=== PATIENT | male | born 1955 | race African-American/Black ===

== ENCOUNTER 2020-01-15 04:06 | Emergency (ER) | payer OTHER ==
[2020-01-15] MEDS ORDERED: PANTOPRAZOLE SODIUM 40 MG VIAL IV PRN (04:46)
[2020-01-15] MEDS ORDERED: ONDANSETRON HCL INJ/PF 4 MG/2 ML SDV IV ONE (04:46)
[2020-01-15] MEDS ORDERED: NORMAL SALINE 250 ML IV PRN ×4 (04:46→05:18)
[2020-01-15] MEDS ORDERED: PANTOPRAZOLE SODIUM 40 MG VIAL IV ONE (04:46)
[2020-01-15 04:59] LABS: MEAN CORPUSCULAR HEMOGLOBIN 31.5 pg (27.0-33.4); MEAN CORPUSCULAR HGB CONC 33.7 g/dL (32.0-36.0); MEAN CORPUSCULAR VOLUME 94 fl (80-97); PLATELET COUNT 106 10^3/uL (150-450); RED BLOOD COUNT 1.54 10^6/uL (4.35-5.55); RED CELL DISTRIBUTION WIDTH 16.6 % (11.5-14.0); WHITE BLOOD COUNT 7.4 10^3/uL (4.0-10.5)
[2020-01-15 05:03] LABS: HEMATOCRIT 14.5 % (37.9-51.0)
--- NOTE | 2020-01-15 05:08 | ER Document Report ---
ED GI/ - General TRAVEL OUTSIDE OF THE [place] IN LAST 30 DAYS: No <ISAMAR CONWAY - Last Filed: 01/15/20 08:06> <DOMITILA LYN Marleen - Last Filed: 01/15/20 11:38> - General Stated Complaint: VOMITING,WEAKNESS Time Seen by Provider: 01/15/20 04:36 Primary Care Provider: AMY PERKINS MD [NO LOCAL MD] - Follow up as needed Notes: Patient is a 64-year-old male who comes emergency department for chief complaint of vomiting blood by EMS. Patient states he vomited twice with mixed blood, 2 large clots, and some gastric contents. Patient states that he was just discharged from [facility] after he had initially been transferred for atrial fibrillation, he states he had been placed on heparin and then started bleeding heavily from the rectum, he was then diagnosed with rectal cancer, he completed oral chemo for this and is no longer on chemotherapy. Patient states that he also developed a bleeding gastric ulcer while he was there and he had 2 separate endoscopies. He states that his last endoscopy was 3 days ago he was told the area had stopped bleeding, he states he was diagnosed with H. pylori and he is currently on the treatment regimen for this. He denies abdominal pain, chest pain, he states his stomach just "feels strange like a pressure". He denies dizziness or passing out. He is not currently on a blood thinner. (ISAMAR CONWAY) - Related Data Allergies/Adverse Reactions: clonidine Allergy (Verified 01/15/20 06:31) Past Medical History - General Information source: Patient - Social History Smoking Status: Never Smoker Frequency of alcohol use: None Drug Abuse: None Lives with: Family Family History: Reviewed & Not Pertinent - Past Medical History Cardiac Medical History: Reports: Hx Atrial Fibrillation Malignancy Medical History: Reports Hx Colorectal Cancer <ISAMAR CONWAY - Last Filed: 01/15/20 08:06> Review of Systems - Review of Systems Constitutional: No symptoms reported EENT: No symptoms reported Cardiovascular: See HPI Respiratory: No symptoms reported Gastrointestinal: See HPI Genitourinary: No symptoms reported Male Genitourinary: No symptoms reported Musculoskeletal: No symptoms reported Skin: No symptoms reported Hematologic/Lymphatic: No symptoms reported Neurological/Psychological: No symptoms reported <ISAMAR CONWAY - Last Filed: 01/15/20 08:06> Physical Exam <ISAMAR CONWAY - Last Filed: 01/15/20 08:06> - Vital signs Vitals: Pulse Ox 95 01/15/20 04:08 - Notes Notes: GENERAL: Patient is alert and interactive but he is slightly sluggish and pale in appearance HEAD: Normocephalic, atraumatic. EYES: Pupils equal, round, and reactive to light. Extraocular movements intact. ENT: Oral mucosa moist, tongue midline. Oropharynx unremarkable. Airway patent. NECK: Full range of motion. Supple. Trachea midline. No lymphadenopathy. LUNGS: Clear to auscultation bilaterally, no wheezes, rales, or rhonchi. No respiratory distress. Non-tender chest wall. HEART: Regular rate and rhythm. 1/6 murmur heard throughout ABDOMEN: Soft, non-tender. Non-distended. Bowel sounds present in all 4 quadrants. GENITOURINARY: Deferred EXTREMITIES: Moves all 4 extremities spontaneously. No edema, normal radial and dorsalis pedis pulses bilaterally. No cyanosis. AV fistula in place in the left arm BACK: no cervical, thoracic, lumbar midline tenderness. No saddle anesthesia, normal distal neurovascular exam. Moves all extremities in full range of motion. NEUROLOGICAL: Alert and oriented x3. Normal speech. Cranial nerves II through XII grossly intact. Strength 5/5 in all extremities. PSYCH: Normal affect, normal mood. SKIN: Warm, dry, normal turgor. No rashes or lesions noted. (ISAMAR CONWAY) Course - Laboratory Result Diagrams: 01/15/20 04:38 01/15/20 04:38 <ISAMAR CONWAY - Last Filed: 01/15/20 08:06> - Laboratory Result Diagrams: 01/15/20 04:38 01/15/20 04:38 <DOMITILA LYN - Last Filed: 01/15/20 11:38> - Re-evaluation Re-evalutation: On my initial evaluation patient's vital signs are unremarkable but patient is obviously sluggish and pale in appearance. He also has black stools on rectal examination. Initially I was going to order transfusion with irradiated pr oducts, however patient clarified that he is not on chemotherapy currently (has completed it and will not be on chemotherapy again). This was changed to regular transfusion. Started Protonix drip, transfusion pending, however we are having a lot of difficulty with vascular access. We were able to place 1 peripheral that is intermittently working. Patient has a very flat EJ, restricted left upper extremity. Hemoglobin is 4.9. Discussed with patient, patient consents to central line. Discussed with Dr. Araya. Central line was placed. 01/15/20 06:05 Called and spoke with Dr. Sorensen, generally surgery sr technical sales consultant, he states he will consult on the patient but he recommends I speak with the [facility] transfer center for potential transfer. We do not have GI sr technical sales consultant here and patient has a com plicated history with his recent bleed and colorectal cancer. Patient also follows with oncology at this facility, and he was very recently discharged from their facility. 01/15/20 07:[address] Osborn, hospitalist on-call at [facility], she states they will gladly accept the patient in transfer however she recommends that patient be accepted to the unit because she believes that this is a complicated GI bleed and because his hemoglobin has very significantly fallen since his discharge. 01/15/20 08:07 Introduced to Starr Lyn PA-C pending transfer. (ISAMAR CONWAY) 01/15/20 08:10 Assumed care of patient from GIACOMO Conway. Patient is pending transfer to [facility]. He did speak with the hospitalist there and they definitely agree that the patient should be transferred but she would like for him to go to the ICU. We are waiting for the burial agent to call back. Once we speak to the burial agent then we can go ahead and start this transfer. Currently he is not hypotensive. He is resting and getting transfusion of blood. It is noted that he had a initial hemoglobin of 4.9 and is getting transfused. He is also on a Protonix drip 8 mg/h. Patient has an upper GI bleed. He is a colorectal patient at [facility]. He has known GI ulcer. We suspect that this is where the bleeding is coming from. GIACOMO Carrera and I rounded on the patient together and they are aware that I am assuming care. We will continue to monitor closely. He has a central line in his right IJ. 01/15/20 08:[address] Dereje Jernigan from the MICU at [facility]. He accepts the patient to his service. The transfer center will call us once a bed is available and then we can arrange transport. They do request that all imaging studies and lab work come with the patient. 01/15/20 11:38 Transfer team from [facility] is here. Went and rounded on the patient. He states he is feeling better after getting transfusion. Vitals are stable. He is stable for transfer. (DOMITILA LYN) - Vital Signs Vital signs: Temp Pulse Resp BP Pulse Ox 97.7 F 71 23 H 157/81 H 100 01/15/20 09:28 01/15/20 09:30 01/15/20 10:41 01/15/20 10:41 01/15/20 10:41 - Laboratory Laboratory results interpreted by me: 01/15/20 01/15/20 01/15/20 04:38 04:38 04:38 RBC 1.54 L Hgb 4.9 L* Hct 14.5 L* RDW 16.6 H Plt Count 106 L Seg Neuts % (Manual) 91 H Lymphocytes % (Manual) 6 L Monocytes % (Manual) 2 L Abs Lymphs (Manual) 0.4 L PT 17.8 H Chloride 110 H Carbon Dioxide 21 L BUN 114 H Creatinine 7.52 H Est GFR ( Amer) 9 L Est GFR (MDRD) Non-Af 7 L Glucose 130 H Calcium 6.0 L* AST 15 L Alkaline Phosphatase 24 L Total Protein 3.5 L Albumin 1.7 L Lipase 493.8 H Crossmatch 01/15/20 04:38 RBC Hgb Hct RDW Plt Count Seg Neuts % (Manual) Lymphocytes % (Manual) Monocytes % (Manual) Abs Lymphs (Manual) PT Chloride Carbon Dioxide BUN Creatinine Est GFR ( Amer) Est GFR (MDRD) Non-Af Glucose Calcium AST Alkaline Phosphatase Total Protein Albumin Lipase Crossmatch See Detail Procedures - Central Line Right Internal jugular Consent obtained: Yes Central line pre-insertion: Sterile PPE donned, Chloraprep applied, Sterile drapes applied Central line lumen type: Triple Anesthetic type: 1% Lidocaine mL's of anesthesia: 3 Ultrasound guided: Yes Line secured with sutures: Yes Central line post-insertion: Blood return from lumens, Biopatch applied, Sutured, Sterile dressing applied, Position confirmed w/ CXR Number of attempts: 1 Complications: No <FRIANT,ISAMAR - Last Filed: 01/15/20 08:06> Discharge <ISAMAR CONWAY - Last Filed: 01/15/20 08:06> <DOMITILA LYN - Last Filed: 01/15/20 11:38> - Discharge Clinical Impression: Upper GI bleed, Anemia requiring transfusions Condition: Fair Disposition: [facility] Referrals: AMY PERKINS MD [NO LOCAL MD] - Follow up as needed
[2020-01-15 05:12] LABS: ALBUMIN 1.7 g/dL (3.5-5.0); ALKALINE PHOSPHATASE 24 U/L (38-126); ANION GAP 7 (5-19); ASPARTATE AMINO TRANSFERASE 15 U/L (17-59); BILIRUBIN,DIRECT 0.1 mg/dL (0.0-0.4); BILIRUBIN,TOTAL 0.3 mg/dL (0.2-1.3); BLOOD UREA NITROGEN 114 mg/dL (7-20); CARBON DIOXIDE 21 mmol/L (22-30); CHLORIDE 110 mmol/L (98-107); GLUCOSE 130 mg/dL (75-110); POTASSIUM 4.4 mmol/L (3.6-5.0); TOTAL PROTEIN 3.5 g/dL (6.3-8.2)
[2020-01-15 05:22] LABS: ABSOLUTE LYMPHOCYTES# (MANUAL) 0.4 10^3/uL (0.5-4.7); ABSOLUTE MONOCYTES # (MANUAL) 0.1 10^3/uL (0.1-1.4); BASOPHILS % (MANUAL) 1 % (0-2); EOSINOPHILS % (MANUAL) 0 % (0-6); LYMPHOCYTES % (MANUAL) 6 % (13-45); MONOCYTES % (MANUAL) 2 % (3-13); NUCLEATED RED BLOOD CELLS 1 /100 WBC (0); SEGMENTED NEUTROPHILS % (MAN) 91 % (42-78); TOTAL CELLS COUNTED 100
[2020-01-15 05:27] LABS: ANISOCYTOSIS 1+; OVALOCYTES SLIGHT; POIKILOCYTOSIS SLIGHT; POLYCHROMASIA 2+; TEAR DROP CELLS SLIGHT
[2020-01-15 05:28] LABS: PLATELET COMMENT ADEQUATE
[2020-01-15 05:29] LABS: HEMOGLOBIN 4.9 g/dL (13.5-17.0)
[2020-01-15 05:30] LABS: INTERNATIONAL RATION (INR) 1.45; PARTIAL THROMBOPLASTIN TIME 33.6 SEC (23.5-35.8); PROTHROMBIN TIME 17.8 SEC (11.4-15.4)
--- NOTE | 2020-01-15 06:47 | RADIOLOGY REPORT (SQ) ---
CHEST X-RAY 1 VIEW on 01/15/2020 at 6:00 AM CLINICAL INDICATION: Central line placement COMPARISON: None FINDINGS: There is elevation of the right hemidiaphragm. Right IJ central venous catheter tip is in the right atrium. A few wires are noted projecting over the chest. The lungs are clear. There is no pneumothorax. Cardiac, hilar and mediastinal contours are within normal limits. Pulmonary vascularity is within normal limits. IMPRESSION: No acute disease.
[2020-01-15 11:57] VITALS: BP 158/72
[2020-01-16 11:23] LABS: PATH REVIEW PATHOLOGIST REVIEWED
== END 2020-01-15 12:08 | disposition short-term general hospital (02) ==
LOC: ER 04:06
DX: D64.9 Anemia, unspecified (principal); K28.4 Chronic or unspecified gastrojejunal ulcer with hemorrhage; K92.0 Hematemesis; A04.8 Other specified bacterial intestinal infections; Z85.048 Personal history of other malignant neoplasm of rectum, rectosigmoid junction, and anus; Z92.21 Personal history of antineoplastic chemotherapy; Z88.8 Allergy status to other drugs, medicaments and biological substances
CPT/HCPCS: 36556; 99285; 96375; 96365; 96366; 86900; 86901; 36415; 36430; 86850; 83690; 85025; 85610; 85730; 80053; 86920; 71045; P9016; C9113; J7050